=== PATIENT | female | born 1940 | race Caucasian/White ===

== ENCOUNTER 2020-04-25 12:24 | Inpatient (IN) | payer OTHER ==
[2020-04-20 10:39] VITALS: BMI 20.6
--- NOTE | 2020-04-24 08:57 | HP ---
Admitting History and Physical - Primary Care Physician PCP: Trey Greer - Admission Chief Complaint: Left breast cancer History of Present Illness: Patient is an 79 yo female who noted a left breast mass on self exam and underwent a mammo 11/2019 which was c/w significant suspicious calcifications extending from the nipple towards the UOQ spanning 7 cm. US done 01/03 was c/w a 3.9 cm irregular mass, a separate mass approx 5.6 cm, left 9 oclock mass and suspicious lower left axillary lymph nodes. Patient had an US guided core bx of the left 2 oclock as well as a bx of the left axillary node. Both were positive for invasive carcinoma. Patient is now presenting for a left MRM. History Source: Patient Limitations to Obtaining History: No Limitations - Past Medical History Cardiovascular: Yes: Other (Mitral chordai rupture Mitral regurgitation) - Past Surgical History Past Surgical History: Yes: Appendectomy Additional Past Surgical History: varicose phlebectomy - Smoking History Smoking history: Never smoked Have you smoked in the past 12 months: No Home Medications - Allergies Allergies/Adverse Reactions: Allergies Allergy/AdvReac Type Severity Reaction Status Date / Time No Known Allergies Allergy Verified 04/20/20 10:32 - Home Medications Home Medications: Ambulatory Orders Calcium 600 + Vit D Tablet 1 tab PO DAILY 04/20/20 Metoprolol Tartrate [Lopressor -] 50 mg PO DAILY 04/20/20 Multivitamins [Tab-A-Vit -] 1 tab PO DAILY 04/20/20 Nitrofurantoin Macrocrystal [Nitrofurantoin] 100 mg PO BID 04/20/20 Family Medical History Family History: Unremarkable Review of Systems - Review of Systems Breasts: reports: See HPI Physical Examination Constitutional: Yes: Well Nourished, Calm Breast(s): Yes: Other (Moderately ptotic A-cup breasts with flattening and mass effect towards the upper outer left retroarealar region. Firm mass noted centrally with suspicious lower left axillay lymph nodes which are freely mobile) Problem List - Problems (1) Breast cancer, left Code(s): C50.912 - MALIGNANT NEOPLASM OF UNSPECIFIED SITE OF LEFT FEMALE BREAST Qualifiers: Breast location: overlapping sites of breast Patient sex: female Assessment/Plan Plan Left MRM
[2020-04-25] MEDS ORDERED: ACETAMINOPHEN 325 MG TABLET (FP) PO PRN ×2 (12:29→12:40)
[2020-04-25] MEDS ORDERED: ONDANSETRON 4 MG/2 ML VIAL IVPUSH PRN (12:29)
[2020-04-25] MEDS ORDERED: ceFAZolin SODIUM 1 GM VIAL ONE (13:46)
[2020-04-25] MEDS ORDERED: fentaNYL CITRATE 250 MCG/5 ML VIAL ONE (13:46)
[2020-04-25] MEDS ORDERED: ONDANSETRON 4 MG/2 ML VIAL ONE ×2 (13:46→16:59)
[2020-04-25] MEDS ORDERED: SODIUM CHLORIDE 0.9% P/F 10 ML VIAL IJ ONE (13:46)
[2020-04-25] MEDS ORDERED: PROPOFOL 20 ML ONE (13:47)
[2020-04-25] MEDS ORDERED: DEXAMETHASONE SOD PHOSPHATE 4 MG/1 ML VIAL ONE (13:47)
[2020-04-25] MEDS ORDERED: ROCURONIUM BROMIDE 50 MG/5 ML SYRINGE ONE (13:49)
[2020-04-25] MEDS ORDERED: oxyCODONE HCL 5 MG TABLET PO PRN (15:38)
[2020-04-25] MEDS ORDERED: BUPIVACAINE LIPOSOME/PF (EXPAREL) 266 MG/20 ML VIAL ONE (15:47)
[2020-04-25] MEDS ORDERED: BUPIVACAINE LIPOSOME/PF (EXPAREL) 266 MG/20 ML VIAL NR ONE (15:51)
[2020-04-25] MEDS ORDERED: BUPIVACAINE HCL/PF 0.5% (5 MG/ML) 30 ML VIAL IJ ONE (15:52)
[2020-04-25] MEDS ORDERED: GUM MASTIC/STORAX/MSAL/ALCOHOL 1 DRP DROPSBTL MC ONE (16:06)
[2020-04-25] MEDS ORDERED: PROMETHAZINE HCL 25 MG/1 ML VIAL ONE (17:07)
[2020-04-25] MEDS ORDERED: PROMETHAZINE HCL 25 MG/1 ML VIAL IVPUSH PRN (17:25)
[2020-04-25] MEDS: CEFAZOLIN 1 GM/D5W 1 GM/50 ML BAG IVPB SCH (21:08)
[2020-04-26] MEDS ORDERED: LOCK ITEM NR ONE (00:13)
[2020-04-26] MEDS: CEFAZOLIN 1 GM/D5W 1 GM/50 ML BAG IVPB SCH ×3 (03:00→09:30)
[2020-04-26] MEDS: DEXTROSE 5%-0.45% SALINE 1,000 ML IV SCH ×2 (08:24→15:37)
[2020-04-26 08:44] LABS: HEMATOCRIT 34.7 % (32.4-45.2); HEMOGLOBIN 11.5 GM/dl (10.7-15.3); MCH 27.1 pg (25.7-33.7); MCHC 33.2 g/dl (32.0-36.0); MEAN CELL VOLUME 81.5 fl (80-96); MEAN PLT VOLUME 7.2 fl (7.5-11.1); PLATELET COUNT 323 K/MM3 (134-434); RBC 4.26 M/mm3 (3.60-5.2); RDW 12.8 % (11.6-15.6)
[2020-04-26] MEDS ORDERED: METOPROLOL TARTRATE 50 MG TABLET (FP) PO SCH (10:00)
[2020-04-26] MEDS ORDERED: HEPARIN NA (PORCINE) 5,000 UNITS/ML 1ML VIAL SQ SCH (10:00)
--- NOTE | 2020-04-26 12:09 | PN ---
Progress Note, Physician Chief Complaint: Left breast cancer with axillary node involvement S/P left breast modified radical mastectomy no reconstruction History of Present Illness: patient has minimal discomfort eating no nausea or vomiting - Current Medication List Current Medications: Active Medications Acetaminophen (Tylenol -) 650 mg PO Q4H PRN PRN Reason: MILD PAIN Last Admin: 04/26/20 09:30 Dose: 650 mg Documented by: Heparin Sodium (Porcine) (Heparin -) 5,000 unit SQ BID TWILA Last Admin: 04/26/20 09:32 Dose: 5,000 unit Documented by: Dextrose/Sodium Chloride (D5-1/2ns -) 1,000 mls @ 100 mls/hr IV ASDIR TWILA Last Admin: 04/26/20 08:24 Dose: Not Given Documented by: Cefazolin Sodium (Ancef 1 Gm Premixed Ivpb -) 1 gm in 50 mls @ 100 mls/hr IVPB Q6H-IV TWILA Stop: 05/02/20 14:59 Last Admin: 04/26/20 09:30 Dose: 100 mls/hr Documented by: Metoprolol Succinate (Toprol Xl -) 50 mg PO DAILY [facility] Ondansetron HCl (Zofran Injection) 4 mg IVPUSH Q6H PRN PRN Reason: NAUSEA AND/OR VOMITING Last Admin: 04/25/20 16:50 Dose: 4 mg Documented by: Oxycodone HCl (Roxicodone -) 5 mg PO Q6H PRN PRN Reason: PAIN LEVEL 6-10 - Objective Vital Signs: Vital Signs Temperature 99.1 F 04/26/20 09:44 Pulse Rate 85 04/26/20 09:44 Respiratory Rate 17 04/26/20 09:44 Blood Pressure 122/57 L 04/26/20 09:44 O2 Sat by Pulse Oximetry (%) 95 04/26/20 09:44 Constitutional: Yes: No Distress Breast(s): Yes: Other (Left chest wall incision intat with steristrips no infection or expanding hematoma blake drains functioning well) Labs: CBC, BMP 04/26/20 08:27 Problem List - Problems (1) Breast cancer, left Problems reviewed: Yes Code(s): C50.912 - MALIGNANT NEOPLASM OF UNSPECIFIED SITE OF LEFT FEMALE BREAST Qualifiers: Breast location: overlapping sites of breast Patient sex: female Assessment/Plan Patient ready for discharge this afternoon BLAKE drain training for family member Nitrofurantoin bid to continue or will send RX for cefadroxil BLAKE drains empty twice daily percocet prn , tylenol prn mild pain follow up one week with Dr Greer
--- NOTE | 2020-04-26 13:43 | PN ---
Progress Note (short form) - Note Progress Note: ANESTHESIA POSTOP 79 YO FEMALE POD#1 S/P LEFT MODIFIED RADICAL MASTECTOMY, GA Patient sitting in chair. No complaints. Pain adequately controlled VSS, Afebrile Continue care. No anesthetic complications. Encouraged IS.
[2020-04-26 14:26] VITALS: BP 120/66; PULSE 84; TEMP 99.5
--- NOTE | 2020-04-26 19:59 | OP ---
DATE OF OPERATION: 04/25/2020 PREOPERATIVE DIAGNOSIS: Central left breast cancer with palpable positive axillary lymph nodes. POSTOPERATIVE DIAGNOSIS: Central left breast cancer with palpable positive axillary lymph nodes. PROCEDURE: Left breast modified radical mastectomy. ANESTHESIA: General endotracheal anesthesia. SURGEON: Savi Greer MD. WOOD ROOM SUPERVISOR: RADHA Clarke. COMPLICATIONS: There were no complications. DESCRIPTION OF PROCEDURE: Briefly, the patient is an 79-year-old G5, P5, postmenopausal female with Portuguese, [place] descent. She is found to have a central left breast mass and underwent a mammography in November 2019 showing suspicious calcifications and a large 7-cm mass extending towards the left nipple. Ultrasound showed suspicious densities over an area of 5.6 cm with a separate left breast 9 o'clock density and highly suspicious left lower axillary lymph nodes. PET scan showed the large cancer in the left breast with multiple suspicious left axillary lymph nodes and a suspicious left internal mammary lymph node. She was seen by breast surgeon and medical oncologist at hospital, was advised to undergo neoadjuvant chemotherapy and had a clinical stage 3A breast cancer. She refused all chemotherapy and surgery at that time and was sent to me for a 2nd opinion. We actually tried to get the patient in during the COVID pandemic but she refused, and eventually came in for consultation. I again advised the patient to seek another medical oncology opinion which she did, but again is refusing chemotherapy at this time, would only allow surgery. I had a long discussion with the patient and her son, and she will not accept standard of care therapy; however, given the extent of the cancer and the fact that it is still operable, I felt that surgery would be reasonable at this time, and she was recommended to undergo a modified radical mastectomy given the known positive lymph nodes. The patient was brought in for the procedure on April 25, 2020. In the holding area, site verification was made, and informed consent was made. She underwent COVID testing preoperatively which was negative. She was brought into the operating room and laid on the OR table in a supine position. Venodynes were placed on the lower extremities prior to induction. She received 2 g of Ancef prior to incision. She underwent general endotracheal anesthesia. The left breast was sterilely prepped and draped in the usual fashion with the axilla prepped in the field. Timeout was performed. At this point a classical mastectomy incision was performed encompassing as much breast and skin and the nipple areolar complex of the left breast to remove the entire breast tumor which encompassed the whole central region of the left breast. Skin flaps were raised superiorly to the level of the clavicle, medial to the level of the sternum, lateral to the level of the latissimus, and inferiorly below the level of the inframammary fold. The breast was taken out off pectoralis major muscle from medial to lateral. The breast was left intact with the axillary contents and a full level 1, level 2 and level 3 axillary dissection was undertaken. The axillary vein was used as the superior border of the dissection and the medial border of the dissection was undertaken underneath the pectoralis major muscle and minor muscles all the way to underneath the clavicle. The axillary contents were left intact with the breast specimen, and the specimen was oriented with a long lateral, short superior suture and sent to pathology in formalin as left modified radical mastectomy specimen. On further palpation, there were noted to be some higher level 3 axillary lymph nodes which were sent separately to pathology as well as some supraclavicular lymph nodes which I was able to remove through the axillary incision by retracting the pectoralis minor muscle and reaching underneath the clavicle and pulling out some highly suspicious palpable firm nodes from the left supraclavicular region, and these were sent separately as left supraclavicular lymph nodes. Hemostasis was achieved. At this point, an inspection of the nerve coursing to the medial pectoralis, I noticed some nodularity within the nerve and vascular bundle, and I resected the nerve to the medial pectoralis on its lateral aspect, and sent this separately to pathology as segment of neurovascular bundle to the medial pectoral muscle; these were sent to pathology in formalin. A separate anterior margin on the anterior skin flap was also sent separately with a suture marking the biopsy cavity site as the anterior margin on the superior skin flap. Hemostasis was achieved, and the wound was copiously irrigated with warm sterile saline. There was no gross tumor left behind. Two Willie drains were placed underneath the mastectomy incision, one towards the left axilla. We did use Exparel for local chest wall block which was diluted for a total of 60 mL was injected into the chest wall for postoperative pain relief. The wound was then closed using interrupted 2-0 deep dermal Vicryl suture and a running 4-0 subcuticular Biosyn suture to close the skin. Mastcony, Steri-Strips were applied over this, which was placed in a sterile dressing and compressed with a chest wall binder postoperatively. She was extubated at the end of the case and brought to the post anesthesia care unit in stable condition. All sponge, needle counts were correct at the end of the case. Estimated blood loss was about 100 mL. She was hemodynamically stable throughout. Again, all sponge and needle counts were correct, and the patient will be admitted postoperatively for wound and pain management. SAVI GREER M.D. [id number]
--- NOTE | 2020-05-03 13:19 | PATH ---
Surgical Pathology Report Patient Name: MONA CEE [facility]. Rec. #: [id number] /Age/Gender: 1940 (Age: 79) / F Account: [id number] Location: [facility] MED-SURG Taken: 04/25/2020 Received: 04/25/2020 Reported: 05/03/2020 Physicians: Trey Greer M.D. Specimen(s) Received A: LEFT BREAST WITH AXILLARY NODE DISSECTION B: LEFT SUPRACLAVICULAR LYMPH NODES C: LEVEL 3 LEFT AXILLARY LYMPH NODES D: LEFT LATERAL NERVE TO THE PECTORAL E: LEFT BREAST ANTERIOR MARGIN Clinical History Left breast extensive cancer with palpable lymph nodes Final Diagnosis A. breast and axillary nodes, left, modified radical mastectomy: Invasive ductal carcinoma, moderately differentiated (tubule score: 3/3, nuclear grade: 2/3, mitotic score: 2/3, total score: 7/9; [place] grade 2). Invasive carcinoma measures 5.5 cm in greatest dimension (gross measurement) And is present in the central aspect of the breast. Invasive carcinoma invades the nipple and dermis of skin with ulceration of nipple epidermis. Ductal carcinoma in situ (DCIS), Solid, cribriform, micropapillary and papillary type, high nuclear grade with extensive necrosis and associated calcifications. Invasive carcinoma extends to the POSTERIOR margin at MULTIPLE foci. DCIS is at 1 mm from the closest POSTERIOR margin. Skeletal muscle is present and is uninvolved by carcinoma. Invasive carcinoma is at 1 mm from the closest anterior soft tissue margin. see specimen E FOR final ANterior margin. Extensive dermal lymphatic and lymphovascular invasion is present. Metastatic carcinoma, extensively involving twenty-four of twenty-eight lymph nodes (24/28). The largest LYMPH NODE ALMOST ENTIRELY REPLACED BY metastatic carcinoma measures 2.9 CM in greatest dimension, Grossly (MACrometastasis). Extensive extranodal extension is present. Pathologic stage (pTNM): pT4b pN3c. see also invasive carcinoma CASE summary below. B. Supraclavicular lymph nodes, left, excision: Metastatic carcinoma extensively involving Six of six lymph nodes (6/6). The largest focus of metastatic carcinoma measures 8 mm in greatest dimension (macro metastasis). Extranodal extension is present. C. level III axillary lymph nodes, left, excision: Metastatic carcinoma, extensively involving two of two lymph nodes (2/2). The largest focus of metastatic carcinoma Measures 3 mm in greatest DIMENSION (macrometastasis). Extranodal extension is present. D. left lateral nerve to the pectoral, excision: Neurovascular bundle showing NEURAL invasion by carcinoma. E. breast, left, anterior margin, excision: Benign fibroadipose tissue; negative for carcinoma. Comments Breast Invasive Carcinoma: Surgical Pathology Case Summary (Based on AJCC TNM 8 th edition) Procedure _X_ Modified radical mastectomy Specimen Laterality _X_ Left Tumor Size _X_ Greatest dimension of largest invasive focus >1 mm (millimeters): 55 mm Histologic Type _X_ Invasive carcinoma of no special type, NOS (ductal) Histologic Grade (Thong Histologic Score) Glandular (Acinar)/Tubular Differentiation _X_ Score 3 (<10% of tumor area forming glandular/tubular structures) Nuclear Pleomorphism _X_ Score 2 Mitotic Rate _X_ Score 2 Overall Grade _X_ Grade 2 (scores of 6 or 7) Tumor Focality _X_ Single focus of invasive carcinoma Ductal Carcinoma In Situ (DCIS) _X_ DCIS is present in specimen _X_ Negative for extensive intraductal component (EIC) Tumor Extension Skin _X_ Invasive carcinoma directly invades into the dermis or epidermis with skin ulceration (classified as T4b) Nipple _X_ DCIS does not involve the nipple epidermis Skeletal Muscle _X_ Skeletal muscle is free of carcinoma Margins Invasive Carcinoma Margins _X_ Positive for invasive carcinoma: _X__ Posterior Extent: multifocal DCIS Margins _X_ Uninvolved by DCIS Distance from closest margin (millimeters): 1 mm from posterior margin Regional Lymph Nodes _X_ Involved by tumor cells Number of Lymph Nodes with Macrometastases (>2 mm): 32 Number of Lymph Nodes with Micrometastases (>0.2 mm to 2 mm and/or >200 cells): 0 Number of Lymph Nodes with Isolated Tumor Cells (=0.2 mm and =200 cells): 0 Size of Largest Metastatic Deposit (millimeters): 29 mm Extranodal Extension: _X_ Present Extent of extranodal extension: _X_ > 2 mm Treatment Effect in the Breast _X_ No known presurgical therapy Treatment Effect in the Lymph Nodes _X_ No known presurgical therapy Lymphovascular Invasion _X_ Present Pathologic Stage Classification (pTNM, AJCC 8th Edition) Primary Tumor (Invasive Carcinoma) (pT) _X_ pT4b: Ulceration and/or ipsilateral macroscopic satellite nodules and/or edema (including peau d'orange) of the skin that does not meet the criteria for inflammatory carcinoma Regional Lymph Nodes (pN) Category (pN) _X_ pN3c: Metastases in ipsilateral supraclavicular lymph nodes Biomarker Studies Results of ER and MA studies performed on this specimen (block A17) at [facility] are as follows: ER (clone [id number] mouse monoclonal antibody by [employer]): _X_ Low positive (1-10% of cells demonstrate nuclear positivity):1-2% nuclear staining with moderate intensity. PgR (clone16 mouse monoclonal antibody by [employer]): _X_ Low positive (1-10% of cells demonstrate nuclear positivity): 1-2 % nuclear staining with moderate intensity. Results of Her2 (IHC) & Ki-67 studies performed on this specimen (block A17) at [place], [place] ([id number]) are as follows: Her2 IHC (EP3 from [employer], formerly known as [id number], using [employer] Polymer Refine detection kit): 3+ (positive). Ki67: ~25% (intermediate proliferative index). Positive and negative controls (internal if applicable) show appropriate results. Formalin fixation and cold ischemic times are within current ASCO/CAP recommendations for ER, PgR and Her2 testing. Electronically Signed Kell Clark M.D. Gross Description A. Received in formalin, labeled "left breast with axillary node dissection," is a 369 gram, 11.5 x 11.0 x 5.0 cm. left mastectomy specimen with a short suture marking the superior aspect and a long suture marking the lateral aspect of the specimen, per the surgeon. There is a 15.5 x 7.0 x 3.0 cm portion of axillary fat attached at the lateral aspect of the specimen. The anterior surface displays a 14.0 x 7.3 cm mariee, elliptical portion of skin with a 1.2 cm in diameter nipple. The skin appears thickened and the nipple displays crusted material and possible ulceration. The posterior margin is inked black and the anterior soft tissue margin is inked blue. The specimen is serially sectioned from medial to lateral. Sectioning reveals a 5.5 x 4.6 x 3.8 cm mariee, firm central mass spanning all four quadrants. The mass abuts the skin and focally abuts the posterior margin as well as the anterior soft tissue margin. The remaining breast parenchyma displays minimal fibrous tissue. Sectioning of the axillary fat reveals abundant lymph nodes, measuring up to 2.9 cm in greatest dimension. Collar Runner sections are submitted in 42 cassettes as follows: 1-serially sectioned nipple; 2-subareolar shave; 3-8-one section of mass; 9-uninvolved upper outer quadrant; 10-uninvolved lower outer quadrant; 18-48-qwkskpxsyw upper inner quadrant; 55-09-fgczetezws lower inner quadrant; 15-anterior soft tissue margin with mass; 16-17-skin with mass; 18-posterior margin with mass; 19-35-one bisected lymph node each; 36-37-one bisected lymph node; 38-39-one bisected lymph node; 40-42-three whole lymph nodes each. Time to formalin fixation: 10 minutes Total formalin fixation time: Approximately 26 hours. B. Received in formalin labeled "left supraclavicular lymph nodes," is a 3.0 x 2.7 x 0.6 cm aggregate of yellow, lobulated adipose tissue. Sectioning reveals 6 lymph nodes ranging from 0.5-0.9 cm in greatest dimension. The lymph nodes are entirely submitted in 5 cassettes as follows: 1-one bisected lymph node; 2: two whole lymph nodes; 3-5-one whole lymph node each. C. Received in formalin labeled "level III left axillary lymph nodes," is a 3.0 x 1.7 x 0.4 cm aggregate of yellow, lobulated adipose tissue. Sectioning reveals 2 lymph nodes measuring 0.5 and 0.6 cm in greatest dimension. The lymph nodes are submitted in toto in one cassette. D. Received in formalin labeled "left lateral nerve to the pectoral," is a 3.0 x 0.5 x 0.3 cm mariee brown portion of fibrous tissue, consistent with a portion of nerve. The specimen is submitted in toto in one cassette. E. Received in formalin labeled "left breast anterior margin," is a 5.3 x 3.0 x 0.7 cm portion of fibroadipose tissue with a suture marking the biopsy cavity side, per the surgeon. The new margin is inked blue and the specimen is serially sectioned. The specimen is entirely and sequentially submitted in 6 cassettes. DL/04/26/2020 saudi04/26/2020
== END 2020-04-26 15:00 | disposition home or self-care (01) | DRG 580 ==
LOC: FM/S 12:24
PROVIDERS: ADMIT Surgery Surgical Oncology; ATTEND Surgery Surgical Oncology
PROC: 07B60ZX Excision of Left Axillary Lymphatic, Open Approach, Diagnostic (ICD-10-PCS; 2020-04-25)
PROC: 0HTU0ZZ Resection of Left Breast, Open Approach (ICD-10-PCS; principal; 2020-04-25 14:28)
DX: C50.912 Malignant neoplasm of unspecified site of left female breast (principal); J98.11 Atelectasis; I10 Essential (primary) hypertension; I34.0 Nonrheumatic mitral (valve) insufficiency
CPT/HCPCS: 36415; 85027; 88305-TC; 88307-TC; 88309-TC; 94760; J1644